=== PATIENT | male | born 1930 | race Caucasian/White ===

== ENCOUNTER → 2017-11-23 | Outpatient (CLI) | payer MEDICARE, BC | END | disposition home or self-care (01) | LOC: PCVCIMAG 10:24 | DX: I25.10 Atherosclerotic heart disease of native coronary artery without angina pectoris (principal); R06.00 Dyspnea, unspecified; E78.5 Hyperlipidemia, unspecified; I65.23 Occlusion and stenosis of bilateral carotid arteries; I34.0 Nonrheumatic mitral (valve) insufficiency; Z95.2 Presence of prosthetic heart valve; Z79.899 Other long term (current) drug therapy | CPT/HCPCS: 80061; 93005; 93306; G0463 ==

== ENCOUNTER → 2018-08-29 | Outpatient (CLI) | payer MEDICARE, BC ==
--- NOTE | 2018-08-29 09:32 | PCVCIMAG ---
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 2D Dimensions IVSd: 13.86 (7-11mm)LVOT Diam: 22.86 (18-24mm) LVDd: 46.18 mm PWd: 10.60 (7-11mm)Ascending Ao: 37.81 (22-36mm) LVDs: 35.59 (25-40mm) Left Atrium: 47.13 (27-40mm) Aortic Root: 36.08 mm LV Single Plane 4CH: 48.33 % LV Single Plane 2CH: 51.69 % Biplane EF: 49.8 % Volumes Left Atrial Volume (Systole) Single Plane 4CH: 110.11 mLSingle Plane 2CH: 98.29 mL LA ESV Index: 58.00 mL/m2 Aortic Valve AoV Peak William.: 2.68 m/s AO Peak Gr.: 28.80 mmHgLVOT Max P.18 mmHg AO Mean Gr.: 15.29 mmHgLVOT Mean P.29 mmHg AO V2 Mean: 1.85 m/sLVOT Max V: 1.02 m/s AO V2 VTI: 63.94 cmLVOT Mean V: 0.71 m/s ANNIE (VTI): 1.66 [id number] V1 VTI: 25.87 cm ANNIE Vmax: 1.56 cm2 SV (LVOT): 106.09 mL Mitral Valve E/A Ratio: 1.2 MV Decel. Time: 257.02 ms MV E Max William.: 1.11 m/s MV A William.: 0.94 m/s IVRT: 128.03 ms Pulmonary Valve PV Peak William.: 0.91 m/sPV Peak Gr.: 3.29 mmHg Pulmonary Vein P Vein S: 0.47 m/sP Vein A: 0.32 m/s P Vein D: 0.58 m/sP Vein A Dur.: 159.2 msec P Vein S/D Ratio: 0.81 Tricuspid Valve TR Peak William.: 2.34 m/s TR Peak Gr.: 21.90 mmHg Left Ventricle The left ventricle is normal size. There is normal LV segmental wall motion. Mild concentric left ventricular hypertrophy. Left ventricular systolic function is normal. The left ventricular ejection fraction is within the normal range. LVEF is 55-60%. Grade II - pseudonormal filling dynamics. Right Ventricle The right ventricle is normal size. The right ventricular systolic function is normal. Atria Left atrium is severely dilated. The right atrium size is normal. Aortic Valve Normally functioning #23 bioprosthetic Medtronic aortic valve replacement No aortic regurgitation is present. There is no aortic valvular stenosis. Calculated aortic valve area is 1.6 cm2 with maximum pressure gradient of 29 mmHg and mean pressure gradient of 15 mmHg. Mitral Valve Moderate mitral annular calcification Moderate mitral regurgitation. No evidence of mitral valve stenosis. Tricuspid Valve The tricuspid valve is normal in structure. Mild tricuspid regurgitation with PAP of 30 mmHg. Pulmonic Valve The pulmonary valve is normal in structure. There is no pulmonic valvular regurgitation. Great Vessels The aortic root is normal in size. IVC is normal in size and collapses >50% with inspiration. Pericardium There is no pericardial effusion. There is no pleural effusion. <Conclusion> Left ventricular systolic function is normal. There is normal LV segmental wall motion. LVEF is 55-60%. Modertate diastolic dysfunction Left atrium is severely dilated. Normally functioning #23 bioprosthetic Medtronic aortic valve replacement. No insufficiency or stenosis Calculated aortic valve area is 1.6 cm2 with maximum pressure gradient of 29 mmHg, mean pressure gradient of 15 mmHg. Moderate mitral annular calcification. Moderate mitral regurgitation. Mild tricuspid regurgitation with pulmonary artery presusre of 30 mmHg. There is no pericardial effusion.
== END | disposition home or self-care (01) ==
LOC: PCVCIMAG 08:41
PROVIDERS: ATTEND Internal Medicine
DX: I08.1 Rheumatic disorders of both mitral and tricuspid valves (principal); I25.10 Atherosclerotic heart disease of native coronary artery without angina pectoris; E78.5 Hyperlipidemia, unspecified; R06.00 Dyspnea, unspecified; I65.23 Occlusion and stenosis of bilateral carotid arteries; Z95.2 Presence of prosthetic heart valve; Z95.1 Presence of aortocoronary bypass graft
CPT/HCPCS: 36415; 80061; 93005; 93306; G0463

== ENCOUNTER → 2019-07-28 | Outpatient (CLI) | payer MEDICARE, BC | END | disposition home or self-care (01) | LOC: PCVCCLINIC 10:20 | PROVIDERS: ATTEND Internal Medicine | DX: I25.10 Atherosclerotic heart disease of native coronary artery without angina pectoris (principal); E78.5 Hyperlipidemia, unspecified; I65.23 Occlusion and stenosis of bilateral carotid arteries; Z95.2 Presence of prosthetic heart valve; Z79.899 Other long term (current) drug therapy; Z88.8 Allergy status to other drugs, medicaments and biological substances | CPT/HCPCS: 36415; 80061; 93005; G0463 ==

== ENCOUNTER → 2019-08-07 | Outpatient (CLI) | payer MEDICARE, BC ==
--- NOTE | 2019-08-07 18:45 | PCVCIMAG ---
EXAM: ABDOMINAL ULTRASOUND COMPLETE INDICATION: Abdominal pain FINDINGS: Gallbladder: No gallstones. No wall thickening or abnormal pericholecystic fluid. Liver: Normal in size measuring 14.5 cm in length. No focal masses. Bile ducts: No intra or extra hepatic bile duct dilatation. The common bile duct measures 6.9 mm. Pancreas: Unremarkable where seen. Spleen: Normal in size measuring 8.7 cm in greatest dimension. No focal masses. Right kidney: No hydronephrosis. Length measures 9.5 cm. Left kidney: No hydronephrosis. Length measures 10.1 cm. Inferior vena cava: Normal in size where seen. Aorta: Normal in caliber where seen. IMPRESSION: Unremarkable abdominal ultrasound. LOC:[id number]
== END | disposition home or self-care (01) ==
LOC: PCVCIMAG 09:33
PROVIDERS: ATTEND Internal Medicine Cardiovascular Disease
DX: R10.9 Unspecified abdominal pain (principal); I25.10 Atherosclerotic heart disease of native coronary artery without angina pectoris; E78.5 Hyperlipidemia, unspecified; Z95.2 Presence of prosthetic heart valve; Z79.899 Other long term (current) drug therapy
CPT/HCPCS: 36415; 76700